=== PATIENT | female | born 1970 | race Caucasian/White ===

== ENCOUNTER 2021-03-30 11:30 | Observation (INO) ==
[2021-03-30] MEDS ORDERED: ONDANSETRON 4 MG/2 ML VIAL IV STA (11:59)
[2021-03-30 13:03] LABS: Basophils % 0.5 % (0.0-0.8); Eosinophils % 0.1 % (0.00-10.9); Hematocrit 45.8 VOL% (35.7-47.0); Hemoglobin 15.3 GM/DL (12.0-16.0); Immature Granulocytes % 0.4 %; Immature Granulocytes Absolute 0.03 #; Lymphocytes # 0.9 10*3/uL (1.4-4.0); Lymphocytes % 10.7 % (21.3-54.2); Mean Corpuscular HGB Conc 33.4 GM/DL (32-36); Mean Corpuscular Volume 92.5 FL (87-102); Mean Platelet Volume 10.9 FL (9.6-12.0); Monocytes % 2.6 % (1.7-12.7); Neutrophils % 85.7 % (38.7-73.9); Platelet Count 283 T/CUMM (130-400); Red Blood Count 4.95 MC/CUMM (3.8-5.5); White Blood Count 8.3 T/CUMM (4-12)
[2021-03-30 13:22] LABS: Bilirubin,Urine Negative (Negative); Blood, Urine Negative (Negative); Glucose,Urine (UA) Negative (Negative); Ketones,Urine Negative (Negative); Mucus,Urine Occasional /LPF (Occasional); Nitrite,Urine Negative (Negative); Protein,Urine Negative; RBC,Urine 4 /HPF (0-4); Squamous Epithelial Cell,Urine Occasional /HPF (0-10); Urine Appearance CLOUDY (Clear); Urine Color Amber (Yellow); Urine Specific Gravity 1.021 (1.001-1.035)
[2021-03-30 13:24] LABS: Calcium 9.7 MG/DL (8.5-10.1); Osmolality,Calculated 281.4 MOS/KG (273-304); Potassium 4.1 MMOL/L (3.5-5.1); Total Protein 7.2 G/DL (6.4-8.2)
[2021-03-30] MEDS ORDERED: ONDANSETRON 4 MG/2 ML VIAL IV PRN (13:51)
[2021-03-30] MEDS ORDERED: ALBUTEROL/IPRATROPIUM 3 ML NEB RESP TX PRN (13:51)
[2021-03-30] MEDS ORDERED: HYDROmorphone 2 MG/1 ML VIAL IV PRN ×2 (13:51)
[2021-03-30] MEDS ORDERED: KETOROLAC 15 MG/1 ML VIAL IV PRN (13:51)
[2021-03-30] MEDS ORDERED: ACETAMINOPHEN 325 MG TABLET PO PRN (13:51)
[2021-03-30] MEDS ORDERED: BISACODYL 5 MG TABLET PO PRN (13:51)
[2021-03-30] MEDS: LACTATED RINGERS 1,000 ML IV SCH ×2 (15:37→23:01)
[2021-03-30] MEDS: PIPERACILLIN/TAZOBACTAM 3,375 MG in SODIUM CHLORIDE 0.9% 100 ML IV SCH ×2 (15:53→23:02)
[2021-03-30] MEDS: ALUMINUM/MAGNES/SIMETH MAX STR 30 ML UDCUP PO PRN (18:17)
[2021-03-31 05:32] LABS: Basophils # 0.1 10*3/uL (0.0-0.2); Basophils % 0.7 % (0.0-0.8); Eosinophils # 0.1 10*3/uL (0.0-0.87); Eosinophils % 1.5 % (0.00-10.9); Hematocrit 39.1 VOL% (35.7-47.0); Hemoglobin 13.4 GM/DL (12.0-16.0); Immature Granulocytes % 0.4 %; Immature Granulocytes Absolute 0.03 #; Lymphocytes # 1.8 10*3/uL (1.4-4.0); Mean Corpuscular HGB Conc 34.3 GM/DL (32-36); Mean Corpuscular Volume 93.5 FL (87-102); Monocytes % 7.1 % (1.7-12.7); Neutrophils % 65.3 % (38.7-73.9); Platelet Count 231 T/CUMM (130-400); Red Blood Count 4.18 MC/CUMM (3.8-5.5); Red Cell Distribution Width 13.2 % (9.3-17.3); White Blood Count 7.2 T/CUMM (4-12)
[2021-03-31 05:56] LABS: Albumin 3.2 G/DL (3.4-5.0); Calcium 9.4 MG/DL (8.5-10.1); Osmolality,Calculated 280.3 MOS/KG (273-304); Potassium 3.8 MMOL/L (3.5-5.1); Total Protein 6.2 G/DL (6.4-8.2)
[2021-03-31] MEDS: PIPERACILLIN/TAZOBACTAM 3,375 MG in SODIUM CHLORIDE 0.9% 100 ML IV SCH ×3 (08:26→21:42)
[2021-03-31] MEDS: PANTOPRAZOLE 40 MG TABLET PO SCH (08:33)
[2021-03-31] MEDS ORDERED: LIDOCAINE 1%/EPI INJ 20 ML VIAL ONE (08:56)
[2021-03-31] MEDS ORDERED: BUPIVACAINE MPF 0.25% 30 ML VIAL ONE (08:56)
[2021-03-31] MEDS ORDERED: TISSUE ADHESIVE 1 EACH APPLICATOR TOP ONE (08:56)
[2021-03-31] MEDS ORDERED: ROCURONIUM 50 MG/5 ML VIAL IV ONE (09:15)
[2021-03-31] MEDS ORDERED: SUCCINYLCHOLINE 200 MG/10 ML VIAL ONE (09:15)
[2021-03-31] MEDS ORDERED: ONDANSETRON 4 MG/2 ML VIAL ONE (09:15)
[2021-03-31] MEDS ORDERED: propofoL 200 MG/20 ML VIAL IV ONE (09:15)
[2021-03-31] MEDS ORDERED: LIDOCAINE 2% 5 ML VIAL ONE (09:15)
[2021-03-31] MEDS ORDERED: DEXAMETHASONE 4 MG/1 ML VIAL ONE (09:15)
[2021-03-31] MEDS ORDERED: HYDROmorphone 2 MG/1 ML VIAL ONE (09:15)
[2021-03-31] MEDS ORDERED: GLUCAGON 1 MG VIAL ONE (11:14)
[2021-03-31] MEDS ORDERED: KETOROLAC 30 MG/1 ML VIAL ONE (11:25)
[2021-03-31] MEDS ORDERED: GLYCOPYRROLATE 0.4 MG/2 ML VIAL ONE (11:26)
[2021-03-31] MEDS ORDERED: SEVOFLURANE 1 UNIT/15 MINUTE INH ONE (11:26)
[2021-03-31] MEDS ORDERED: NEOSTIGMINE 10 MG/10 ML VIAL ONE (11:27)
[2021-03-31] MEDS ORDERED: ONDANSETRON 4 MG/2 ML VIAL IV PRN (12:09)
[2021-03-31] MEDS ORDERED: HYDROmorphone 2 MG/1 ML VIAL IV PRN (12:09)
[2021-03-31] MEDS: LACTATED RINGERS 1,000 ML IV SCH ×2 (16:40→22:34)
[2021-03-31] MEDS: ALUMINUM/MAGNES/SIMETH MAX STR 30 ML UDCUP PO PRN (21:41)
[2021-04-01 05:33] LABS: Albumin 2.9 G/DL (3.4-5.0); Bilirubin,Direct 0.23 MG/DL (0.0-0.20); Bilirubin,Indirect 0.5 MG/DL (0.0-1.0); Bilirubin,Total 0.7 MG/DL (0.20-1.00); Total Protein 5.9 G/DL (6.4-8.2)
[2021-04-01] MEDS: LACTATED RINGERS 1,000 ML IV SCH ×3 (08:12→20:18)
[2021-04-01] MEDS: PANTOPRAZOLE 40 MG TABLET PO SCH (11:05)
[2021-04-01] MEDS: PIPERACILLIN/TAZOBACTAM 3,375 MG in SODIUM CHLORIDE 0.9% 100 ML IV SCH ×3 (14:52→22:02)
[2021-04-01] MEDS: ALUMINUM/MAGNES/SIMETH MAX STR 30 ML UDCUP PO PRN (20:18)
[2021-04-02] MEDS: PIPERACILLIN/TAZOBACTAM 3,375 MG in SODIUM CHLORIDE 0.9% 100 ML IV SCH (05:53)
[2021-04-02 08:22] LABS: Albumin 3.6 G/DL (3.4-5.0); Bilirubin,Direct 0.23 MG/DL (0.0-0.20); Bilirubin,Indirect 0.4 MG/DL (0.0-1.0); Bilirubin,Total 0.6 MG/DL (0.20-1.00); Total Protein 7.1 G/DL (6.4-8.2)
[2021-04-02] MEDS: PANTOPRAZOLE 40 MG TABLET PO SCH (09:40)
[2021-04-02 11:40] VITALS: BP 122/75
== END 2021-04-02 13:50 | disposition home or self-care (01) ==
LOC: N.ED 11:30 → N.3E 13:51 → INTOOBSV 13:51 → N.3E 15:49
PROVIDERS: ADMIT Surgery; ATTEND Surgery
PROC: LAPCHOL (2021-03-31 10:31)